=== PATIENT | male | born 1965 | race Caucasian/White ===

== ENCOUNTER 2019-12-03 11:56 | Emergency (ER) | payer OTHER ==
[~2019-12-03] VITALS: Ht 177.8 cm; Wt 127.0 kg
[2019-12-03 13:09] LABS: URINE BILIRUBIN NEGATIVE (Negative); URINE BLOOD 1+ (Negative); URINE CLARITY CLEAR; URINE COLOR YELLOW; URINE GLUCOSE-RANDOM* NEGATIVE (Negative); URINE KETONES 1+ (Negative); URINE LEUKOCYTES-REFLEX NEGATIVE (Negative); URINE NITRITE-REFLEX NEGATIVE (Negative); URINE PROTEIN (DIPSTICK) TRACE (Negative); URINE SPECIFIC GRAVITY >= 1.030 (1.005-1.035); URINE UROBILINOGEN 0.2 E.U./dl (0.2-1.0)
[2019-12-03 13:09] LABS: ABSOLUTE NEUTROPHILS 10.8 thou/uL (1.4-8.2); BASOPHILS 0.1 % (0.0-2.0); EOSINOPHILS 0.2 % (0.0-3.0); HEMATOCRIT 43.1 % (42.0-52.0); HEMOGLOBIN 14.6 gm/dL (14.0-18.0); LYMPHOCYTES 10.6 % (24.0-44.0); MCHC 33.8 g/dL (28.0-37.0); MCV 82.9 fL (80.0-100.0); MONOCYTES 5.7 % (1.0-8.0); PLATELET COUNT 345 thou/uL (150-400); POLYS 83.4 % (36.0-66.0); RDW 13.5 % (10.5-14.5)
[2019-12-03 13:13] LABS: CALCIUM 8.9 mg/dL (8.5-10.1); POTASSIUM 3.9 mmol/L (3.5-5.1)
[2019-12-03 13:19] LABS: SQUAMOUS None Seen /LPF (0-3)
[2019-12-03 13:20] LABS: CASTS None Seen /LPF (None Seen); CRYSTALS None Seen /LPF (None Seen); URINE RBC 0-2 Rare /HPF (0-2); URINE WBC-REFLEX 0-5 Rare /HPF (0-5)
[2019-12-03 13:20] LABS: ALBUMIN 3.9 g/dL (3.4-5.0); TOTAL BILIRUBIN 0.6 mg/dL (0.2-1.0)
[2019-12-03 15:21] VITALS: BP 142/87
== END 2019-12-03 15:25 | disposition home or self-care (01) ==
LOC: ER 11:56
PROVIDERS: Nurse Practitioner
DX: R10.32 Left lower quadrant pain (principal); R10.12 Left upper quadrant pain; M54.9 Dorsalgia, unspecified

== ENCOUNTER → 2019-12-15 | Outpatient (CLI) | payer OTHER | LOC: CAT 10:30 | PROVIDERS: ATTEND Internal Medicine | DX: K45.8 Other specified abdominal hernia without obstruction or gangrene (principal); K86.89 Other specified diseases of pancreas; Z90.49 Acquired absence of other specified parts of digestive tract ==